=== PATIENT | male | born 1950 | race Caucasian/White ===

== ENCOUNTER 2017-08-31 20:39 | Emergency (ER) | payer MEDICARE ==
[~2017-08-31] VITALS: Ht 182.9 cm; Wt 107.3 kg
[~2017-08-31 20:39] MED LIST: ACETAMINOPHEN500 M1 PO; ALEVE220 MG PO; ASPIRIN81 MG PEG; ASPIRIN81 MG PO; CATAPRES TTS-20.2 MG TRANSDERM; COLACE100 MG PO; CORDARONE200 MG PO; LISINOPRIL10 MG PO; LOPRESSOR25 MG PEG; OMEPRAZOLE40 MG PO; PRINIVIL10 MG PO; PRINIVIL20 MG PO; PULMICORT0.5 MG/21 UPD; ZOCOR20 MG PO
[2017-08-31 20:47] VITALS: Ht 182.9 cm; Wt 107.3 kg
[2017-08-31 21:18] LABS: BASOPHILS 0.5 % (0-2); EOSINOPHILS 2.1 % (0-7); HEMATOCRIT 47.3 % (42.0-54.0); HEMOGLOBIN 16.1 g/dL (13.5-17.5); IMMATURE GRANULOCYTES 0.7 % (0-5); LYMPHOCYTES 17.3 % (15-50); MCH 34.1 pg (26.0-34.0); MCV 100.2 fL (80.0-100.0); MEAN PLATELET VOLUME 10.4 fL (7.4-10.4); MONOCYTES 5.7 % (2-11); NEUTROPHILS 73.7 % (40-80); RBC 4.72 10x6/uL (4.20-6.10); RDW 14.1 % (11.5-14.5); WBC 7.7 10x3/uL (4.8-10.8)
[2017-08-31 21:21] LABS: INR 0.97 (0.85-1.17); PROTIME 12.5 SECONDS (11.6-15.0)
[2017-08-31 21:29] LABS: ALBUMIN 3.6 g/dL (3.4-5.0); ANION GAP 10.5 mmol/L (8-16); BILIRUBIN - TOTAL 0.49 mg/dL (0.2-1.3); CALCIUM 8.5 mg/dL (8.5-10.1); CARBON DIOXIDE 27.2 mmol/L (21.0-32.0); CREATININE - SERUM 1.2 mg/dL (0.6-1.3); POTASSIUM - SERUM 3.7 mmol/L (3.5-5.1); PROTEIN - SERUM 7.5 g/dL (6.4-8.2)
[2017-08-31 21:43] LABS: PLATELET COUNT 162 10x3/uL (130-400)
[2017-08-31 23:40] VITALS: BP 134/80
== END 2017-08-31 23:40 ==
LOC: D.ER 20:39
PROVIDERS: Emergency Medicine
DX: G45.9 Transient cerebral ischemic attack, unspecified (principal); R20.2 Paresthesia of skin; I10 Essential (primary) hypertension; I25.10 Atherosclerotic heart disease of native coronary artery without angina pectoris; F17.200 Nicotine dependence, unspecified, uncomplicated; R00.0 Tachycardia, unspecified

== ENCOUNTER → 2017-10-20 10:12 | Outpatient (CLI) | payer MEDICARE ==
[2017-08-31 20:47] VITALS: BMI 32.1
== END | disposition home or self-care (01) ==
LOC: D.RT 10:12
DX: J44.9 Chronic obstructive pulmonary disease, unspecified (principal)

== ENCOUNTER → 2019-09-13 09:44 | Outpatient (CLI) | payer MEDICARE, OTHER ==
[2017-08-31 20:47] VITALS: BMI 32.1
== END | disposition home or self-care (01) ==
LOC: D.HCCECHO 09:30
PROVIDERS: ATTEND Internal Medicine Cardiovascular Disease
DX: I25.10 Atherosclerotic heart disease of native coronary artery without angina pectoris (principal)

== ENCOUNTER → 2020-04-30 13:48 | Outpatient (CLI) | payer MEDICARE, OTHER ==
[2017-08-31 20:47] VITALS: BMI 32.1
== END | disposition home or self-care (01) ==
LOC: D.US 13:48
PROVIDERS: ATTEND Internal Medicine Cardiovascular Disease
DX: R60.0 Localized edema (principal)

== ENCOUNTER 2020-06-12 07:57 | Day surgery (SDC) | payer MEDICARE, OTHER ==
[~2020-06-12] VITALS: Ht 182.9 cm; Wt 116.4 kg
--- NOTE | ~2020-06-12 | HEMODYNAMI ---
PATIENT:DEEDEE BYRNE MEDICAL RECORD: [id number] : 54 LOCATION:D.CAT ADMISSION DATE: 06/12/20 Generatedon:110:13 Patient name: DEEDEE BYRNE Patient #: [id number] SSN: : 1950 Date of study: 06/12/2020 Page: Of Hemodynamic Procedure Report Patient Data Patient Demographics Procedure consent was obtained First Name: DEEDEE Gender: Male Last Name: CATY : 1950 [facility] Initial: LEBRON Age: 70 year(s) Patient #: [id number] Race: Additional ID: [id number] Contact details [address]: [address] [place] [address] State: [place] City: [place] Zip code: [address] Past Medical History History of disease Date Diagnosis Comments CAD Allergies: No known allergies Admission Admission Data Admission Date: 06/12/2020 Admission Time: 7:57 Arrival Date: 06/12/2020 Arrival Time: 0:00 Height (in.): 72 BSA: 2.37 (m2) Height (cm.): 182.88 BMI: 34.68 (kg/m2) Weight (lbs.): 255.74 Weight (kg.): 116 Lab Results Lab Result Date: 06/12/2020 Lab Result Time: 0:00 Biochemistry Name Units Result Min Max BUN mg/dl 19 --(----)*- 7 18 Creatinine mg/dl 1.3 --(---*)-- 0.6 1.3 eGFR ml/min 58 *-(----)-- 90 120 NONAFRICAN CBC Name Units Result Min Max Hemoglobin g/dl 16.2 --(--*-)-- 13.5 17.5 Procedure Procedure Types Cath Procedure Sedation Charges Moderate Sedation 10-24 minutes Peripheral Cath Diagnostic Procedure Rug Cutter Peripheral Procedures AFRO Diagnostic Procedure Description Procedure Date Procedure Date: 06/12/2020 Procedure Start Time: 9:55 Procedure End Time: 10:12 Procedure Staff Name Function Carlos Lomax MD Performing Physician Sade Moran RT Monitor Valerie Watson RT Scrub Jaylon Dunlap RN Nurse Procedure Data Cath Procedure Fluoroscopy Diagnostic fluoroscopy Total fluoroscopy Time: 1.1 time: 1.1 min min Diagnostic fluoroscopy Total fluoroscopy dose: 235 dose: 235 mGy mGy Contrast Material Contrast Material Type Amount (ml) Isovue 300 83 Entry Location Entry Primary Successful Side Size Upsize Upsize Entry Closure Succes sful Closure Location (Fr) 1 (Fr) 2 (Fr) Remarks Device Remarks Femoral Right 5 Fr Exoseal artery Estimated blood loss: 10 ml Diagnostic catheters Device Type Used For End Catheter Placement DIAGNOSTIC UF 5Fr Procedure catheter ([id number]) Procedure Complications No complications Procedure Medications Medication Administration Route Dosage Oxygen etCO2 Nasal cannula 2 l/min Lidocaine 2% added to field 20 Heparin Flush Bag added to field 2 bags (1000units/500ml NS) 0.9% NaCl I.V. 100 ml/hr Versed I.V. 1 mg Fentanyl I.V. 50 mcg Versed I.V. 1 mg Fentanyl I.V. 50 mcg Hemodynamics Rest BSA: 2.37 (m2) HGB: 16.2 (g/dl) O2 Consumption: Estimated: 351.72 (ml/min) O2 Co nsumption indexed: Estimated:148.41 (ml/min/m) Heart Rate: 156 (bpm) Snapshots Pre Cath Intra NCS Post Cath Vital Signs Time Heart Resp SPO2 etCO2 NIBP (mmHg) Rhythm Pain Sedation Rate (ipm) (%) (mmHg) Status Level (bpm) 9:41:14 96 20 97 0 125/99(111) NSR 0 (11) 10(A) , No pain 9:45:22 100 18 96 18.2 119/99(117) NSR 0 (11) 10(A) , No pain 9:50:21 99 21 97 22 120/78(94) NSR 0 (11) 9(A) , No pain 9:54:33 99 19 95 13.6 124/78(101) NSR 0 (11) 9(A) , No pain 9:58:40 96 19 98 22.7 130/98(118) NSR 0 (11) 9(A) , No pain 10:02:50 98 18 96 16.6 126/85(114) NSR 0 (11) 9(A) , No pain 10:07:02 97 11 95 26.5 126/85(107) NSR 0 (11) 10(A) , No pain 10:11:12 96 17 99 12.8 132/85(106) NSR 0 (11) 10(A) , No pain Medications Time Medication Route Dose Verified Delivered Reason Notes Effe ctiveness by by 9:36:56 Oxygen etCO2 2 Carlos Buffie used for Nasal l/min Dami Dunlap RN procedure cannula 9:47:05 Lidocaine 2% added 20ml Carlos Carlos for local to vial Dami Lomax MD anesthetic field 9:47:11 Heparin Flush added 2 Carlos Carlos used for Bag to bags Dami Lomax MD procedure (1000units/500ml field NS) 9:47:19 0.9% NaCl I.V. 100 Carlos Buffie Per ml/hr Dami Dunlap RN physician 9:47:25 Versed I.V. 1 mg Carlos Buffie for Dami Dunlap RN sedation 9:47:31 Fentanyl I.V. 50 Carlos Buffie for mcg Dami Dunlap RN sedation 9:57:53 Versed I.V. 1 mg Carlos Buffie for Dami Dunlap RN sedation 9:57:57 Fentanyl I.V. 50 Carlos Buffie for mcg Dami Dunlap RN sedation Procedure Log Time Note 8:49:44 Informed consent obtained and on chart 8:50:04 Procedure Status Peripheral. 8:50:06 Time tracking: Regular hours (M-F 7:00 - 5:00) 8:50:10 Plan of Care:Hemodynamics will remain stable., Cardiac rhythm will remain stable., Comfort level will be maintained., Respiratory function will remain adequate., Patient/ family verbilizes understanding of procedure., Procedure tolerated without complication., Recovers from procedure without complications.. 8:50:43 H&P Date Dictated: 06/04/2020 Within 30 days and on chart., H&P Addendum completed by physician on day of procedure. (MUST COMPLETE FOR ALL OUTPATIENTS). 8:50:52 Patient allergic to No known allergies 8:52:52 Patient Weight : 255.74 lbs 8:52:58 Patient Height : 72 inches 8:53:02 Arrival Date: 06/12/2020 12:00:00 AM 9:10:04 Valerie Watson RT(R) sent for patient. Start room use. 9:21:50 Patient received from Pre/Post Procedure Room to CCL 1 Alert and oriented. Tansferred to table in Supine position. 9:21:51 Warm blankets applied, and wyatt hugger turned on for patient comfort. 9:21:52 Correct patient and procedure confirmed by team. 9:21:52 ECG and BP/O2 sat monitors applied to patient. 9:22:09 Pre-procedure instructions explained to patient. 9:22:09 Pre-op teaching completed and patient verbalized understanding. 9:22:11 Family in patients room. 9:22:12 Patient NPO since Midnight. 9:22:19 Is the patient allergic to Iodine/contrast media? No. 9:22:22 Is patient on blood thinner?No 9:22:23 Patient diabetic? No. 9:22:25 Previous problem with sedation/anesthesia? No ? 9:22:30 Snore? Yes 9:22:31 Sleep apnea? No 9:22:32 Deviated septum? No 9:22:39 Opens mouth fully? Yes 9:22:41 Sticks out tongue? Yes 9:22:45 Airway obstruction? Yes COPD 9:22:48 Dentures? No ? 9:36:56 Oxygen 2 l/min etCO2 Nasal cannula was administered by Jaylon Dunlap RN; used for procedure; Verbal order read back and verified. 9:40:07 Vital chart was started 9:40:09 Baseline sample Acquired. 9:40:11 Full Disclosure recording started 9:40:38 IV patent on arrival in right forearm with 0.9% NaCl at [facility]. 9:43:49 Lab Result : Creatinine 1.3 mg/dl 9:43:49 Lab Result : BUN 19 mg/dl 9:43:49 Lab Result : eGFR NONAFRICAN 58 ml/min 9:43:49 Lab Result : Hemoglobin 16.2 g/dl 9:44:13 Lab results completed and on chart. 9:44:23 Bilateral groins area was prepped with chlora-prep and draped in sterile fashion 9:44:24 Alarms reviewed by R. N. 9:44:29 Sharps counted by scrub and verified by R.N. 9:45:44 Physician arrived 9:45:45 --------ALL STOP TIME OUT------ 9:45:49 Final Timeout: patient, procedure, and site verified with staff and physician. All members of the team are in agreement. 9:45:59 Bilateral groins site verified by team. 9:46:03 Fire Safety Assessment: A--An alcohol-based skin anteseptic being used preoperatively., C--Open oxygen or nitrous oxide is being used., D--An ESU, laser, or fiber-optic light is being used. 9:46:07 Physical assessment completed. ASA score P 2 - A patient with mild systemic disease as per Carlos Lomax MD. 9:46:11 3a) 45-59 Moderately reduced kidney function. 9:46:14 Maximum allowable contrast dose (3.7 X eGFR X 0.75)160 ml. 9:46:22 Sedation plan: IV Moderate Sedation Medication:Versed, Fentanyl 9:46:39 Use device set Femoral Dx 9:47:05 Lidocaine 2% 20ml vial added to field was administered by Carlos Lomax MD; for local anesthetic; Verbal order read back and verified. 9:47:11 Heparin Flush Bag (1000units/500ml NS) 2 bags added to field was administered by Carlos Lomax MD; used for procedure; Verbal order read back and verified. 9:47:19 0.9% NaCl 100 ml/hr I.V. was administered by Jaylon Dunlap RN; Per physician; Verbal order read back and verified. 9:47:25 Versed 1 mg I.V. was administered by Jaylon Dunlap RN; for sedation; Verbal order read back and verified. 9:47:31 Fentanyl 50 mcg I.V. was administered by Jaylon Dunlap RN; for sedation; Verbal order read back and verified. 9:50:03 ACIST Syringe ([id number]) opened to sterile field. 9:50:03 Bag Decanter () opened to sterile field. 9:50:04 Medline Cath Pack ([id number]) opened to sterile field. 9:50:08 ACIST Hand Control (29930) opened to sterile field. 9:50:10 ACIST Manifold (12581) opened to sterile field. 9:50:11 Tegaderm 4 x 4 (1626W) opened to sterile field. 9:50:16 SHEATH 5FR Eagle ([id number]) opened to sterile field. 9:50:17 EMERALD Guide Wire (928-850) opened to sterile field. 9:55:04 Procedure started. 9:55:41 Local anesthetic to right femoral artery with Lidocaine 2% by Carlos Lomax MD.INITIAL ACCESS ONLY 9:55:57 A 5 Fr sheath was inserted into the Right Femoral artery 9:56:33 J wire advanced. 9:57:53 Versed 1 mg I.V. was administered by Jaylon Dunlap RN; for sedation; Verbal order read back and verified. 9:57:57 Fentanyl 50 mcg I.V. was administered by Jaylon Dunlap RN; for sedation; Verbal order read back and verified. 9:58:09 UF cath advanced 9:58:29 A DIAGNOSTIC UF 5Fr catheter ([id number]) was advanced over the wire and used for Procedure. 9:59:14 Abdominal angiogram w/ runoff was performed. 10:00:20 Left leg runoff performed. 10:02:18 Right leg runoff performed. 10:07:10 EXOSEAL 5Fr (EX500) opened to sterile field. 10:07:24 Sheath removed intact; hemostasis achieved with Exoseal to the Right Femoral artery. 10:07:27 Procedure ended.(Physican Out) 10:07:37 Fluoroscopy time 01.10 minutes. 10:07:42 Fluoroscopy dose: 235 mGy 10:07:42 Flurop Dose total: 235 10:07:48 Dose Area Product 41653 mGy/cm. 10:07:55 Contrast amount:Isovue 300 83ml. 10:07:59 Maximum allowable dose exceeded? No. 10:07:59 Sharps counted by scrub and verified by R.N. 10:08:26 Insertion/operative site no bleeding no hematoma. 10:08:30 Post-op/insertion site Right Femoral artery dressed using a 4 x 4 and Tegaderm. 10:08:32 Post Procedure Pulses reassessed and unchanged 10:09:01 Post-procedure physical assessment completed. ASA score P 3 - A patient with severe systemic disease as per Carlos Lomax MD. 10:09:05 Post procedure rhythm: unchanged. 10:09:10 Estimated blood loss: 10 ml 10:09:12 Post procedure instruction explained to patient.Patient verbalizes understanding. 10:09:52 Procedure type changed to Cath procedure, Sedation Charges, Moderate Sedation 10-24 minutes, Peripheral Cath Diagnostic Procedure, Rug Cutter Peripheral Procedures, AFRO Diagnostic 10:09:53 Procedure and supply charges have been captured, reviewed, submitted and are correct. 10:11:44 Procedure Complication : No complications 10:11:47 Vital chart was stopped 10:11:56 AFRO Findings: PVD: surgery consult 10:11:59 See physician's report for complete and final results. 10:12:01 Report given to Pre/Post Procedure Room. 10:12:04 Patient transfered to Pre/Post Procedure Room with Stretcher. 10:12:08 Procedure ended. 10:12:08 Full Disclosure recording stopped 10:12:12 End room use (Document Last) 10:12:45 End room use (Document Last) 10:13:09 End room use (Document Last) Device Usage Item Name Manufacture Quantity Catalog Hospital Part Current Minimal L ot# / Number Charge Number Stock Stock Serial# Code ACIST Acist 1 08228 [id number] [id number] [id number] 20 Syringe Medical (54600) Systems Inc Bag Microtek 1 2001S 683442 49434 311853 5 Decanter Medical Inc. (2001S) Medline Medline 1 [id number] 308255 42570 505449 5 Cath Pack ([id number]) ACIST Hand Acist 1 16441 065650 929283 809477 5 Control Medical (84405) Systems Inc ACIST Acist 1 23388 173399 466046 031059 5 Manifold Medical (01953) Systems Inc Tegaderm 4 3M 1 1626W 612466 214662 279100 5 x 4 (1626W) SHEATH 5FR Terumo 1 THE081 926115 579707 595965 5 Eagle (DSE790) EMERALD Cardinal 1 502-455 784403 696032 653354 5 Guide Wire Health (502-455) DIAGNOSTIC Cardinal 1 [id number] 765863 821056 585112 10 UF 5Fr Health catheter ([id number]) EXOSEAL 5Fr Cardinal 1 EX500 943293 044953 760655 10 (EX500) Health Signature Audit [place] Stage Time Signature Unsigned Intra-Procedure 06/12/2020 Sade Moran 10:12:45 AM RT(R) Intra-Procedure 06/12/2020 Jaylon Dunlap RN 10:13:09 AM Intra-Procedure 06/12/2020 Carlos Lomax MD 10:13:29 AM [id number] [place] [address]
[2020-06-12] MEDS ORDERED: POTASSIUM CHLO10 ME1 PO (08:35)
[2020-06-12] MEDS ORDERED: ASPIRIN325 MG PO (08:35)
[2020-06-12] MEDS ORDERED: ALBUTEROL SULF8.5 GM INH (08:36)
[2020-06-12] MEDS ORDERED: LASIX20 MG PO (08:36)
[2020-06-12] MEDS ORDERED: BREO ELLIPTA 21 EACH (08:36)
[2020-06-12] MEDS ORDERED: METOLAZONE2.5 MG PO (08:37)
[2020-06-12 08:41] VITALS: BP 136/76; Ht 182.9 cm; Wt 116.4 kg
[2020-06-12 09:10] LABS: BASOPHILS 0.5 % (0-2); EOSINOPHILS 1.7 % (0-7); HEMATOCRIT 48.9 % (42.0-54.0); HEMOGLOBIN 16.2 g/dL (13.5-17.5); IMMATURE GRANULOCYTES 0.8 % (0-5); LYMPHOCYTE ABS# 1.04 10x3/uL (1.32-3.57); LYMPHOCYTES 9.9 % (15-50); MCH 35.4 pg (26.0-34.0); MCHC 33.1 g/dL (31.0-37.0); MCV 106.8 fL (80.0-100.0); MEAN PLATELET VOLUME 10.7 fL (7.4-10.4); MONOCYTES 5.4 % (2-11); NEUTROPHIL ABS# 8.55 10x3/uL (1.78-5.38); NEUTROPHILS 81.7 % (40-80); RBC 4.58 10x6/uL (4.20-6.10); RDW 14.4 % (11.5-14.5); WBC 10.5 10x3/uL (4.8-10.8)
[2020-06-12 09:14] LABS: PLATELET COUNT 208 10x3/uL (130-400)
[2020-06-12 09:16] LABS: ANION GAP 11.7 mmol/L (8-16); CALCIUM 9.4 mg/dL (8.5-10.1); CARBON DIOXIDE 28.4 mmol/L (21.0-32.0); CHOL - HDL RATIO 6.8 ratio (2.3-4.9); CREATININE - SERUM 1.3 mg/dL (0.6-1.3); LDL-HDL RATIO 4.5 ratio (1.5-3.5); POTASSIUM - SERUM 4.1 mmol/L (3.5-5.1)
--- NOTE | 2020-06-12 10:25 | NUR ---
PT REC'D TO CATH RECOVERY ROOM 3 VIA STRETCHER. MONITORS ESTAB. NO FAMILY AT BS. SEE PSYCH SALES SPECIALIST FLOWSHEETS. ALARMS ON AND C/L IN REACH.
--- NOTE | 2020-06-12 10:40 | NUR ---
PT RESTING QUIETLY, VSS. R GROIN SITE SOFT, NO S/S BLEEDING OR HEMATOMA. R LEG/FOOT WARM, PULSES EASILY DOPPLERED. NO S/S OF DISTRESS. ALARMS ON AND C/L IN REACH.
--- NOTE | 2020-06-12 11:10 | NUR ---
R GROIN SITE SOFT, NO S/S BLEEDING OR SWELLING. VSS. PT DENIES PAIN OR NEEDS. ALARMS ON AND C/L IN REACH.
--- NOTE | 2020-06-12 11:35 | NUR ---
R GROIN SITE SOFT, NO S/S/ BLEEDING OR HEMATOMA. PULSES EASILY DOPPLERED. HOB ELEVATED. PT VOIDED 100CC DARK YELLOW URINE IN URINAL. ALARMS ON AND C/L IN URINAL.
--- NOTE | 2020-06-12 11:45 | NUR ---
DR. CUNHA IN TO SEE PT, NEW ORDER REC'D FOR CTA.
--- NOTE | 2020-06-12 12:15 | NUR ---
R GROIN SITE SOFT, NO S/S BLEEDING OR HEMATOMA. R LEG/FOOT WARM, PULSES DOPPLERED. WILL RESITE PIV PER CT ORDERS. AT BS.
--- NOTE | 2020-06-12 12:44 | NUR ---
PIV RESITED TO R AC 20 GA X 3 STICKS - GOOD BLOOD RETURN, PATENT TO GRAVITY. 22GA PIV D/C'D INTACT, DSG APPLIED. CT NOTIFIED.
--- NOTE | 2020-06-12 12:53 | NUR ---
ALL DISCHARGE INSTRUCTIONS REVIEWED WITH PT AND HIS (SIGNED BY PER HIS REQUEST), INCLUDING RESTRICTIONS, MEDS AND F/U APPT IN [place]. OFFICE WILL CONTACT PT RE: RESULTS OF CTA. BOTH VERBALIZE UNDERSTANDING. PT WAITING FOR CT. ALARMS ON AND C/L IN REACH.
--- NOTE | 2020-06-12 13:40 | NUR ---
PT TO CT VIA BED WITH NURSE.
--- NOTE | 2020-06-12 14:10 | NUR ---
CTA COMPLETE, DR. CUNHA NOTIFIED THAT THE CONTRAST STUDY DID NOT BARREL BRIDGE ASSEMBLER ON THE TEST, NEW ORDER FOR MRA, IF PT WANTED TO STAY FOR IT TODAY. PT ASSISTED UP TO BEDSIDE, VOIDED 200CC CLEAR, EZRA URINE. THEN HEADED BACK TO CATH RECOVERY.
--- NOTE | 2020-06-12 14:25 | NUR ---
BACK TO FOUNDRY METALLURGIST ROOM 3. PT AND DISCUSSED HAVING MRA AND DECIDED THEY DO NOT WANT ANY FURTHER TESTS TODAY. I NOTIFIED MANDY AT DR. AMARO OFFICE. PT PIV D/C'D INTACT, DSG APPLIED. PT ALLOWED UP TO GET DRESSED INDEPENDENTLY.
--- NOTE | 2020-06-12 14:30 | NUR ---
R GROIN SITE SOFT, NO S/S BLEEDING OR HEMATOMA.
--- NOTE | 2020-06-12 14:38 | NUR ---
PT D/C'D VIA WC TO PRIVATE VEHICLE WITH ALL PAPERWORK AND BELONGINGS.
== END 2020-06-12 14:38 | disposition home or self-care (01) ==
LOC: D.CATH 07:57
PROVIDERS: ATTEND Internal Medicine Cardiovascular Disease
DX: I73.9 Peripheral vascular disease, unspecified (principal); I25.10 Atherosclerotic heart disease of native coronary artery without angina pectoris; Z95.2 Presence of prosthetic heart valve

== ENCOUNTER → 2020-07-18 09:02 | Outpatient (CLI) | payer MEDICARE, OTHER ==
[2020-06-12 08:41] VITALS: BMI 34.8
[~2020-07-18 09:02] MED LIST changes: +ALBUTEROL SULF8.5 GM INH; +ASPIRIN325 MG PO; +BREO ELLIPTA 21 EACH; +LASIX20 MG PO; +METOLAZONE2.5 MG PO; +POTASSIUM CHLO10 ME1 PO
== END | disposition home or self-care (01) ==
LOC: D.CT 09:02
PROVIDERS: ATTEND Internal Medicine Cardiovascular Disease
DX: I70.211 Atherosclerosis of native arteries of extremities with intermittent claudication, right leg (principal); I70.212 Atherosclerosis of native arteries of extremities with intermittent claudication, left leg; L98.499 Non-pressure chronic ulcer of skin of other sites with unspecified severity